=== PATIENT | female | born 1940 | race Caucasian/White ===

== ENCOUNTER → 2020-03-23 08:14 | Outpatient (BNVA) | payer MEDICARE, MEDICAID, SELFPAY | PROVIDERS: PCP Nurse Practitioner Family; Referring Provider Nurse Practitioner Family; Visit Provider Internal Medicine | DX: R00.1 Bradycardia, unspecified (principal); I10 Essential (primary) hypertension; I63.40 Cerebral infarction due to embolism of unspecified cerebral artery; Q21.1 Atrial septal defect; I44.7 Left bundle-branch block, unspecified; I35.0 Nonrheumatic aortic (valve) stenosis; E78.5 Hyperlipidemia, unspecified; Z79.82 Long term (current) use of aspirin; Z79.02 Long term (current) use of antithrombotics/antiplatelets; Z79.899 Other long term (current) drug therapy | CPT/HCPCS: 99212 ==

== ENCOUNTER → 2021-02-16 14:45 | Outpatient (BNVA) | payer MEDICARE, MEDICAID, SELFPAY | PROVIDERS: PCP Nurse Practitioner Family; Referring Provider Family Medicine; Visit Provider Internal Medicine | DX: I44.7 Left bundle-branch block, unspecified (principal); I35.0 Nonrheumatic aortic (valve) stenosis; I10 Essential (primary) hypertension; I63.40 Cerebral infarction due to embolism of unspecified cerebral artery; Q21.1 Atrial septal defect | CPT/HCPCS: 93005; 99212 ==

== ENCOUNTER → 2022-02-16 15:20 | Outpatient (BNVA) | payer MEDICARE, MEDICAID, SELFPAY | PROVIDERS: PCP Internal Medicine; Referring Provider Internal Medicine; Visit Provider Internal Medicine | DX: I10 Essential (primary) hypertension (principal); R00.1 Bradycardia, unspecified; I63.40 Cerebral infarction due to embolism of unspecified cerebral artery; I44.7 Left bundle-branch block, unspecified; I35.0 Nonrheumatic aortic (valve) stenosis; Q21.1 Atrial septal defect | CPT/HCPCS: 93005; 99212 ==

== ENCOUNTER 2023-02-22 14:29 | Outpatient (AMB) | payer MEDICARE, MEDICAID, SELFPAY ==
[2023-02-22 14:37] VITALS: BP 142/54; PULSE 56; O2SAT 95; BMI 37.9
--- NOTE | 2023-02-22 14:37 | MHC.OFFVIS ---
Intake Vital Signs 02/22/23 14:37 Height 5 ft 5 in Weight 227 lb 15.327 oz BMI 37.9 BP 142/54 H Blood Pressure Location Lt brachial Position Sitting Pulse 56 Pulse Source Pulse Oximeter Pulse Oximetry (%) 95 Intake Visit Reasons: 1 year follow up Intake Note: pt says feels good at status quo, get sob with physical activities Yield Loss Inspector Required: No Clock Smith: Clock Smith Present Accompanied by: Daughter Allergies No Known Allergies [No Known Allergies*] Allergy (Verified 02/22/23 14:42) Medication List - Last Reconciled 02/22/23 by Mala Christopher, MARIANNA-C alprazolam 0.5 mg PO DAILY amlodipine 10 mg PO DAILY atorvastatin 20 mg PO BEDTIME doxazosin 16 mg (2 x 8 mg) PO DAILY furosemide 2 tablets in am ( 40mg) and 1 tablet in pm ( 20mg) PO once; 90 days hydralazine 50 mg PO TID isosorbide mononitrate ER 120 mg PO DAILY 90 days levothyroxine 50 mcg PO polyethylene glycol 3350 (Miralax) 17 grams PO DAILY sertraline 50 mg PO DAILY warfarin 5 mg PO 2XW HPI 1 year follow up HPI Details Haroon is an 82-year-old female with past medical his hypertension, hyperlipidemia, aortic stenosis, sinus bradycardia, left bundle branch block, PFO who presents for follow-up. Today she reports that she has been doing well since her last visit 02/16/2022. She denies any concerning chest discomfort. No significant shortness of breath. No PND, orthopnea or edema. No presyncope, syncope, falls. Taking meds as directed. She checks her blood pressure at home periodically. It is up and down though she is not able to tell me the numbers. Daughter is present and assisting with Bulgarian translation at their request. Permit signed. [facility] Medical History Other and unspecified hyperlipidemia Nonrheumatic aortic (valve) stenosis Sinus bradycardia LBBB (left bundle branch block) PFO (patent foramen ovale) Cerebrovascular accident, embolic Essential hypertension Surgical History History of total right knee replacement Family History Father No problems noted. Mother Stroke Social History Alcohol intake: former Patient Tobacco Use Status: Never used Tobacco Review of Systems Const All systems reviewed & are unremarkable except as noted in HPI and below ENT Denies dizziness Card Denies chest pain, Denies chest pain at rest, Denies chest pain with activity, Denies rapid heart rate, Denies pedal edema, Denies edema, Denies leg edema, Denies lightheadedness, Denies palpitations, Denies dyspnea, Denies dyspnea on exertion and Denies orthopnea Resp Denies cough, Denies dyspnea and Denies dyspnea on exertion GI Denies hematochezia and Denies change in stool character Musc Denies abnormal gait, Denies limited range of motion, Denies muscle cramps, Denies muscle weakness, Denies numbness, Denies radiating pain into limb, Denies stiffness and Denies tingling Neuro Denies abnormal gait, Denies dizziness, Denies numbness and Denies tingling Endo Denies palpitations Physical Exam Vital Signs: Last Vital Signs Pulse 56 02/22/23 14:37 BP 142/54 H 02/22/23 14:37 Pulse Ox 95 02/22/23 14:37 BMI result Body Mass Index 37.9 Const General: cooperative, healthy appearing, comfortable and no acute distress Orientation/consciousness: patient oriented x3 Neck Neck: Yes normal visual inspection Resp Effort & Inspection: normal respiratory effort Auscultation: clear to auscultation bilaterally, no crackles, no rales, no rhonchi and no wheezes Cardio Jugular venous distension: no JVD Rate: regular rate Rhythm: regular rhythm Heart sounds: S1 normal heart sound present, S2 normal heart sound present, no murmurs and no rubs Neuro General: patient oriented x3 Extrem General: Yes normal to inspection, No no pedal edema and No calf tenderness Psych Appearance: grossly normal Mental Status: mental status grossly normal Speech and movement: Normal speech and movement present Office Procedures EKG Details: Today, read by me, sinus bradycardia, nonspecific intraventricular conduction delay, possible anterior infarct, unchanged from prior EKG, rate 58, QTC 461 milliseconds [id number], Complete Assessment & Plan Assessment & Plan (1) Nonrheumatic aortic (valve) stenosis: Code(s): I35.0 - Nonrheumatic aortic (valve) stenosis Plan: History of aortic stenosis. Last echo 12/17/2019 showed EF 60-65%, mild LVH, [id number] aortic stenosis, mild mitral regurgitation. She has since refused further echo cardiograms. She does have a systolic murmur noted on examination. Her aortic valve does not sound severe at this time. She denies any cardinal symptoms of severe including chest discomfort, shortness of breath, presyncope, syncope. Discussed echocardiograms for evaluation and she declines. She says she will not have valve replacement so there is no need to pursue checking valve. Reviewed cardinal signs of severe with her. Cardiology follow-up in 1 year, sooner if needed (2) LBBB (left bundle branch block): Code(s): I44.7 - Left bundle-branch block, unspecified Plan: Chronic on EKG. In some patients a left bundle branch block can cause cardiomyopathy. Last known EF was normal. She does not appear to have heart failure signs or symptoms. Will continue to follow clinically (3) Sinus bradycardia: Code(s): R00.1 - Bradycardia, unspecified Plan: History of sinus bradycardia. No presyncope, syncope, falls. She adamantly refuses pacemaker placement if warranted. Would avoid all rate slowing medications on her. Pulses slow this visit, asymptomatic. Signs of symptomatic bradycardia reviewed. Emergency care if ever needed. (4) Essential hypertension: Code(s): I10 - Essential (primary) hypertension Plan: Mild elevation today. She is on multiple medications, no changes will be made. Continue amlodipine, Lasix, hydralazine, isosorbide. Coding Level of Care Code Est Pt Level 3 (68127) Diagnoses Nonrheumatic aortic (valve) stenosis I35.0 LBBB (left bundle branch block) I44.7 Sinus bradycardia R00.1 Essential hypertension I10 CPT Codes EKG - CPT: 23260-[id number], Complete ([id number]) Time Spent (min) 26
== END 2023-02-22 15:14 | disposition home or self-care (01) ==
PROVIDERS: PCP Internal Medicine; Visit Provider Nurse Practitioner Family
DX: R94.31 Abnormal electrocardiogram [ECG] [EKG] (principal)
CPT/HCPCS: 93010; 99213

== ENCOUNTER → 2023-02-22 14:29 | Outpatient (BNVA) | payer MEDICARE, MEDICAID, SELFPAY | PROVIDERS: PCP Internal Medicine; Visit Provider Nurse Practitioner Family | DX: I35.0 Nonrheumatic aortic (valve) stenosis (principal); I44.7 Left bundle-branch block, unspecified; I10 Essential (primary) hypertension; R00.1 Bradycardia, unspecified | CPT/HCPCS: 93005; 99212 ==